=== PATIENT | female | born 1990 | race African-American/Black ===

== ENCOUNTER 2018-01-23 09:01 | Emergency (ER) | payer BC, OTHER ==
[2018-01-23 09:09] VITALS: BP 136/80; PULSE 70; TEMP 98.1; BMI 33.5
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
== END 2018-01-23 11:43 | disposition home or self-care (01) ==
LOC: JERFT 09:01
DX: R07.81 Pleurodynia (principal)
CPT/HCPCS: 71046-TC-FY; 84703; 99281-25

== ENCOUNTER 2018-07-22 20:42 | Emergency (ER) | payer SELFPAY ==
[2018-07-22 20:53] VITALS: TEMP 98.8; BMI 36.2
--- NOTE | 2018-07-22 22:47 | PDOC ---
History of Present Illness - General Chief Complaint: Chest Pain Stated Complaint: CHEST PAIN Time Seen by Provider: 07/22/18 22:46 History Source: Patient - History of Present Illness Initial Comments: 07/23/18 00:35 27-year-old female complaining of left-sided chest pain after physical therapy 1 week ago. Pain is worse with movement. Denies pleuritic chest pain, diaphoresis, nausea, vomiting, epigastric pain. No past medical history denies prolonged sitting, OCP use, recent travel. Past History - Past Medical History Allergies/Adverse Reactions: Allergies Allergy/AdvReac Type Severity Reaction Status Date / Time No Known Allergies Allergy Verified 07/22/18 20:53 Home Medications: Ambulatory Orders Ibuprofen 800 mg PO QID PRN #14 tablet 07/23/18 COPD: No - Suicide/Smoking/Psychosocial Hx Smoking Status: No Smoking History: Never smoked Have you smoked in the past 12 months: No Number of Cigarettes Smoked Daily: 0 Hx Alcohol Use: No Drug/Substance Use Hx: No Review of Systems - Review of Systems Able to Perform ROS?: Yes Is the patient limited Guinean proficient: No Constitutional: No: Symptoms Reported, See HPI, Chills, Diaphoresis, Fever, Loss of Appetite, Malaise, Night Sweats, Weakness, Weight Stable, Unintentional Wgt. Loss, Unexplained wgt Loss, Other Respiratory: No: Symptoms reported, See HPI, Cough, Orthopnea, Shortness of Breath, SOB with Exertion, SOB at Rest, Stridor, Wheezing, Productive cough, Hemoptysis, Other Cardiac (ROS): Yes: Chest Pain. No: Symptoms Reported, See HPI, Edema, Irregular Heart Rate, Lightheadedness, Palpitations, Syncope, Chest Tightness, Other *Physical Exam - Vital Signs Last Vital Signs Temp Pulse Resp BP Pulse Ox 98.8 F 106 H 18 142/74 100 07/22/18 20:48 07/22/18 20:48 07/22/18 20:48 07/22/18 20:48 07/22/18 20:48 - Physical Exam General Appearance: Yes: Appropriately Dressed Respiratory/Chest: positive: Chest Tender (left sided chest tenderness), Lungs Clear, Normal Breath Sounds Cardiovascular: positive: Regular Rhythm, S1, S2, Tachycardia. negative: Regular Rate, Edema, JVD, Murmur, Bradycardia, Diastolic Murmur, Systolic Murmur , Gallop/S3, Gallop/S4, Irregularly Irregular, Irregular, Other Gastrointestinal/Abdominal: positive: Normal Bowel Sounds, Soft Musculoskeletal: positive: Normal Inspection Extremity: positive: Normal Capillary Refill, Normal Inspection, Normal Range of Motion Integumentary: positive: Normal Color, Dry, Warm Neurologic: positive: Fully Oriented, Alert, Normal Mood/Affect Medical Decision Making - Medical Decision Making 07/23/18 00:37 A: Chest pain reproducible P: EKG: sinus tachycardia chest xray: negative *DC/Admit/Observation/Transfer Diagnosis at time of Disposition: Costochondral chest pain - Discharge Dispostion Disposition: HOME - Prescriptions Prescriptions: Ibuprofen 800 mg PO QID PRN #14 tablet PRN Reason: Pain - Referrals - Patient Instructions Printed Discharge Instructions: Costochondritis Additional Instructions: take ibuprofen as prescribed Additional Instructions: * Please call your personal physician to report your Emergency Department visit and to report your progress, if any. * If there is no improvement in symptoms in 2 days call your physician. * Return to the Emergency Department for any worsening symptoms. - Post Discharge Activity Forms/Work/School Notes: Back to Work
[2018-07-22] MEDS ORDERED: KETOROLAC TROMETHAMINE 30 MG/1 ML VIAL IM ONE (23:58)
[2018-07-23] MEDS ORDERED: KETOROLAC TROMETHAMINE 30 MG/1 ML VIAL ONE (00:14)
[2018-07-23 00:47] VITALS: BP 136/75; PULSE 78
--- NOTE | 2018-07-23 12:33 | EKG ---
Test Reason : Blood Pressure : / mmHG Vent. Rate : 115 BPM Atrial Rate : 115 BPM P-R Int : 168 ms QRS Dur : 088 ms QT Int : 336 ms P-R-T Axes : 051 057 029 degrees QTc Int : 464 ms SINUS TACHYCARDIA POSSIBLE LEFT ATRIAL ENLARGEMENT BORDERLINE ECG Confirmed by MD DYLLAN, SHANNON ([id number]) on 07/23/2018 12:32:57 PM Referred By: Confirmed By:SHANNON MIJARES MD
== END 2018-07-23 00:59 | disposition home or self-care (01) ==
LOC: JER 20:42
PROC: 3E0233Z Introduction of Anti-inflammatory into Muscle, Percutaneous Approach (ICD-10-PCS; principal; 2018-07-22)
DX: M94.0 Chondrocostal junction syndrome [Tietze] (principal)
CPT/HCPCS: 71046-TC-FY; 84703; 93005; 93010; 99283-25

== ENCOUNTER 2024-05-14 10:54 | Emergency (ER) | payer SELFPAY ==
[2024-05-14 11:04] VITALS: BMI 36.2
[2024-05-14 13:06] LABS: EPI CELLS 18 /uL (0-25.1); HYALINE CASTS 0 /uL (0-3.1); PH,URINE 6.5 (5.0-8.0); URINE APPEARANCE CLEAR; URINE BACTERIA 125 /uL (0-1359); URINE BILIRUBIN NEGATIVE (NEGATIVE); URINE COLOR YELLOW; URINE GLUCOSE (UA) NEGATIVE (NEGATIVE); URINE KETONE TRACE (NEGATIVE); URINE LEUK ESTERASE TRACE (NEGATIVE); URINE NITRITE NEGATIVE (NEGATIVE); URINE PROTEIN NEGATIVE (NEGATIVE); URINE RBC 17 /uL (0-23.9); URINE WBC 24 /uL (0-25.8)
[2024-05-14] MEDS: SODIUM CHLORIDE 1,000 ML IV STA (13:06)
[2024-05-14 13:07] LABS: BASO % 0.2 % (0-2.0); EOS % 1.1 % (0-4.5); HEMATOCRIT 41.7 % (32.4-45.2); HEMOGLOBIN 13.9 GM/dL (10.7-15.3); LYMPH % 42.8 % (8-40); MCH 31.2 pg (25.7-33.7); MCHC 33.3 g/dl (32.0-36.0); MEAN CELL VOLUME 93.7 fl (80-96); MEAN PLT VOLUME 8.7 fl (7.5-11.1); MONO % 6.4 % (3.8-10.2); NEUT % 49.5 % (42.8-82.8); PLATELET COUNT 214 10^3/uL (134-434); RBC 4.45 M/mm3 (3.60-5.2); RDW 12.5 % (11.6-15.6); WHITE BLOOD COUNT 4.7 K/mm3 (4.0-10.0)
[2024-05-14 13:13] LABS: INR 0.99 (0.83-1.09); PROTHROMBIN TIME (PATIENT) 11.4 SEC (9.7-13.0)
[2024-05-14 13:16] LABS: ACTIVATED PTT 31.8 SECONDS (25.2-36.5)
[2024-05-14 13:25] LABS: POTASSIUM 4.2 mmol/L (3.5-5.1)
[2024-05-14 13:27] LABS: CALCIUM 9.3 mg/dL (8.5-10.1)
[2024-05-14 13:28] LABS: ALBUMIN 3.8 g/dl (3.4-5.0); BLOOD UREA NITROGEN 10.5 mg/dL (7-18); MAGNESIUM 2.1 mg/dL (1.8-2.4)
[2024-05-14 13:31] LABS: CREATININE 0.8 mg/dL (0.55-1.3)
[2024-05-14 13:32] LABS: BILIRUBIN,TOTAL 0.9 mg/dL (0.2-1)
[2024-05-14 13:33] LABS: TOT PROT 7.1 g/dl (6.4-8.2)
[2024-05-14 14:02] VITALS: BP 124/57; PULSE 68; RESP 20; TEMP 98.4
[2024-05-14] MEDS: ASPIRIN 81 MG CHEWABLE TABLETS PO ONE (14:04)
[2024-05-14 14:21] LABS: HIV INTERPRETATION NEGATIVE (NEGATIVE)
== END 2024-05-14 14:35 | disposition home or self-care (01) ==
LOC: JER 10:54
PROC: 3E0337Z Introduction of Electrolytic and Water Balance Substance into Peripheral Vein, Percutaneous Approach (ICD-10-PCS; principal; 2024-05-14)
DX: R07.89 Other chest pain (principal); R06.02 Shortness of breath; M94.0 Chondrocostal junction syndrome [Tietze]; Z20.822 Contact with and (suspected) exposure to COVID-19
CPT/HCPCS: 0241U-QW; 36415; 71046-TC-FY; 80053; 81003; 83735; 84484; 84703; 85025; 85379; 85610; 85730; 86803; 87086; 87389; 93005; 93010; 99285-25